=== PATIENT | female | born 1935 | race Caucasian/White ===

== ENCOUNTER 2016-09-08 08:35 | Outpatient (CLI) | payer OTHER ==
--- NOTE | 2016-09-08 15:27 | DIAGNOSTIC IMAGING REPORT ---
PROCEDURE: NM BONE/JOINT THREE PHASE INDICATION: Right hand second finger wound. Assess for osteomyelitis. TECHNIQUE: 25 mCi of technetium-99m MDP injected intravenously. Blood flow, blood pool, and delayed static images. COMPARISON: Comparison is made radiographs of the right hand from [facility] on 09/01/2016. FINDINGS: Blood flow and blood pool images are normal. Delayed static images demonstrate mild increased uptake in the right second distal interphalangeal joint and radial right wrist compatible with arthritic changes. There is no evidence of osteomyelitis. Delayed static images of the left hand demonstrate mild arthritic changes of the DIP joints of the left second and third distal phalangeal joints, and radial left wrist appear IMPRESSION: 1. Mild arthritic change of the distal interphalangeal joint of the right second finger. 2. Mild arthritic changes of the distal interphalangeal joints of the left second and third fingers. 3. Mild arthritic changes of bilateral wrists. 4. No evidence of osteomyelitis. 5. Findings called to Dr. Adamson.
== END 2016-09-08 23:00 ==
LOC: NM SRH 08:35
DX: M13.842 Other specified arthritis, left hand (principal); M13.841 Other specified arthritis, right hand; M13.832 Other specified arthritis, left wrist; M13.831 Other specified arthritis, right wrist